=== PATIENT | female | born 1940 | race Caucasian/White ===

== ENCOUNTER 2017-04-27 08:05 | Day surgery (SDC) | payer MEDICARE, BC ==
[~2017-04-27 08:05] MED LIST: Bupivacaine 0.5% 50 ML MDV ONE; Lidocaine 1% with EPINEPHrine 1:100,000 50 ML MDV ONE
[2017-04-27] MEDS ORDERED: Sodium Chloride 0.9% 1,000 ML IV SCH (08:30)
[2017-04-27] MEDS ORDERED: fentaNYL 100 MCG/2 ML SDV IVPUSH PRN (09:27)
[2017-04-27] MEDS ORDERED: Lidocaine 2% Jelly 30 ML Tube MUCMEM ONE (09:45)
[2017-04-27] MEDS ORDERED: Propofol 200 MG/20 ML SDV ONE ×3 (09:49→10:50)
[2017-04-27] MEDS ORDERED: fentaNYL 250 MCG/5 ML SDV ONE (09:55)
[2017-04-27] MEDS: ceFAZolin 2 GM in Premix Bag 1 BAG IV ONE ×2 (10:10→12:20)
[2017-04-27] MEDS ORDERED: Vit E/Lidocaine/Aloe/Collagen 14 GM TUBE TP ONE (11:00)
[2017-04-27] MEDS ORDERED: oxyCODONE 5 MG Tab PO PRN (11:35)
--- NOTE | 2017-04-28 07:44 | OR ---
DATE OF PROCEDURE: 04/27/2017 PROCEDURE: 1. Excision of eschar in preparation of wound VAC (64141). 2. Wound VAC placement (59899). COMPLICATIONS: None. CRUTCH MAKER: None. ANESTHETIC: MAC/local. INDICATIONS: A 76-year-old female with a chronic necrotic wound, requiring definitive granulation treatment. RISKS: Risks, benefits, alternatives, limitations including, but not limited to infection, bleeding, and chronic wound formation, and requirement for multiple surgeries were explained to the patient, who wished to proceed. PREOPERATIVE DIAGNOSIS: Chronic wound, right leg. POSTOPERATIVE DIAGNOSIS: Chronic wound, right leg. PROCEDURE IN DETAIL: The patient was placed in supine position. The leg was prepped and draped. Using a Weck blade set to 12,000, this was dissected initially. This was then followed by electrocautery, this was found to be full thickness down to the fascia/muscle. This debridement was completed with minimal bleeding controlled with electrocautery. The wound itself was then thoroughly irrigated. The size of the wound would be described as full thickness and is 12.1 cm x 5.3 cm. A single film was then placed over the skin and the area over the chronic wounds were then cut out. A black sponge was then placed within the wound after 2% lidocaine was applied to this. Multiple overlay films were then laid upon this and the trackpad was then placed after a defect was created in the film. This was then checked for leaks, which none were noted. The procedure was terminated. The patient tolerated the procedure very well. Samy Hopkins MD /[id number]
== END 2017-04-27 13:15 | disposition home or self-care (01) ==
LOC: JP.SDS 08:05
PROVIDERS: ATTEND Surgery
DX: L97.913 Non-pressure chronic ulcer of unspecified part of right lower leg with necrosis of muscle (principal); I12.9 Hypertensive chronic kidney disease with stage 1 through stage 4 chronic kidney disease, or unspecified chronic kidney disease; N18.4 Chronic kidney disease, stage 4 (severe); D63.1 Anemia in chronic kidney disease; E55.9 Vitamin D deficiency, unspecified; N25.81 Secondary hyperparathyroidism of renal origin; I48.0 Paroxysmal atrial fibrillation; Z79.01 Long term (current) use of anticoagulants; Z79.899 Other long term (current) drug therapy; Z88.8 Allergy status to other drugs, medicaments and biological substances; Z91.09 Other allergy status, other than to drugs and biological substances
CPT/HCPCS: 15002; 97605; A9270; J0690; J2704; J3010; J7040